=== PATIENT | female | born 1990 | race Two or more races ===

== ENCOUNTER 2023-05-15 01:55 | Observation (INO) | payer MEDICAID, OTHER ==
[~2023-05-15] VITALS: Ht 172.7 cm; Wt 90.0 kg
[2023-05-15 02:48] LABS: Basophils # (auto) 0 10 ^3/uL (0-0.2); Basophils % (auto) 0.3 % (0.0-2.0); Eosinophils # (auto) 0 10 ^3/uL (0-0.8); Eosinophils % (auto) 0.2 % (0.0-7.0); Hematocrit 37.5 % (36.0-46.0); Hemoglobin 12.2 g/dL (12.2-16.2); Lymphocytes # (auto) 0.6 10 ^3/uL (0.4-5.4); Lymphocytes % (auto) 4.3 % (10.0-50.0); Mean Corpuscular Hemoglobin 28.7 pg (28.0-32.0); Mean Corpuscular Hgb Conc. 32.6 g/dL (32.0-36.0); Monocytes # (auto) 0.8 10 ^3/uL (0-1.3); Monocytes % (auto) 5.7 % (0.0-12.0); Neutrophils # (auto) 13.3 10 ^3/uL (1.6-8.6); Neutrophils % (auto) 89.5 % (37.0-80.0); Red Blood Cells 4.26 10^6/uL (4.0-5.20); Red Cell Distribution Width 13.7 % (11.8-14.3); White Blood Cell 14.9 10^3/uL (4.4-10.8)
[2023-05-15 03:00] LABS: Lipase 38 U/L (12-53)
[2023-05-15 03:01] LABS: INR 1.03 (0.9-1.15); Prothrombin Time 10.8 sec (9.3-11.8)
[2023-05-15 05:08] LABS: Blood Alcohol < 3.0 mg/dL (<10)
[2023-05-15 05:35] LABS: Alanine Aminotransferase 17 U/L (7-40); Albumin 4.4 g/dL (3.2-4.8); Alkaline Phosphatase 85 U/L (46-116); Anion Gap 7 (5-15); Aspartate Aminotransferase 14 U/L (13-40); BUN/Creatinine Ratio 15.2 (10.0-20.0); Bilirubin, Total 0.6 mg/dL (0.2-1.0); Blood Urea Nitrogen 10 mg/dL (9-23); Calcium 9.1 mg/dL (8.7-10.4); Carbon Dioxide 25 mmol/L (20-30); Chloride 107 mmol/L (98-107); Glucose 125 mg/dL (74-106); Potassium 4.3 mmol/L (3.5-5.1); Sodium 139 mmol/L (136-145); Total Protein 6.8 g/dL (5.7-8.2)
[2023-05-15] MEDS ORDERED: ONDANSETRON HCL 4 MG/2 ML VIAL IV PRN (06:00)
[2023-05-15] MEDS ORDERED: MORPHINE SULFATE INJ 2 MG/ml SYRG IV PRN (06:00)
[2023-05-15] MEDS ORDERED: NITROGLYCERIN 0.4 MG SL TAB SL PRN (06:00)
[2023-05-15] MEDS: cefTRIAXone 1GM/50ML D5W 50 ML IV ONE (07:48)
[2023-05-15 09:40] VITALS: PULSE 84; RESP 16; O2SAT 96
[2023-05-15 10:04] LABS: Urine Bacteria FEW /hpf (None Seen); Urine Blood TRACE /uL (Negative); Urine Clarity Clear (Clear); Urine Color Yellow (Yellow); Urine Mucus FEW (None Seen); Urine Protein, UAD TRACE (Negative); Urine Urobilinogen Normal (Negative); Urine WBC 1 /hpf (0 - 5)
[2023-05-15 10:14] LABS: Amphetamine Screen, Urine Neg (NEGATIVE)
[2023-05-15 10:15] LABS: Barbiturate Scree,Urine Neg (NEGATIVE); Benzodiazephine Screen, Urine Neg (NEGATIVE); Cannabinoid Screen, Urine Neg (NEGATIVE); Cocaine Screen, Urine Neg (NEGATIVE); Opiate Scree,Urine Neg (NEGATIVE); Phencyclidine Screen, Urine Neg (NEGATIVE)
[2023-05-15] MEDS: ACETAMINOPHEN 325 MG TAB PO PRN (10:19)
[2023-05-15] MEDS: ENOXAPARIN SOD 40 MG/0.4 ML SYRINGE SC SCH (10:19)
[2023-05-15 18:22] VITALS: BP 113/63; PULSE 92; RESP 20; TEMP 99.3; O2SAT 99
[2023-05-15 20:00] VITALS: PULSE 74; PULSE 97; RESP 18; O2SAT 97
[2023-05-16 05:00] VITALS: BP 106/59; PULSE 91; RESP 20; TEMP 98.8; O2SAT 97
[2023-05-16 06:39] LABS: Basophils # (auto) 0 10 ^3/uL (0-0.2); Basophils % (auto) 0.3 % (0.0-2.0); Eosinophils # (auto) 0 10 ^3/uL (0-0.8); Eosinophils % (auto) 0.2 % (0.0-7.0); Hematocrit 37.5 % (36.0-46.0); Hemoglobin 12.2 g/dL (12.2-16.2); Lymphocytes # (auto) 1.3 10 ^3/uL (0.4-5.4); Lymphocytes % (auto) 9.4 % (10.0-50.0); Mean Corpuscular Hemoglobin 29.1 pg (28.0-32.0); Mean Corpuscular Hgb Conc. 32.4 g/dL (32.0-36.0); Mean Corpuscular Volume 89.6 fL (80.0-100.0); Monocytes # (auto) 1.5 10 ^3/uL (0-1.3); Monocytes % (auto) 10.3 % (0.0-12.0); Neutrophils # (auto) 11.3 10 ^3/uL (1.6-8.6); Neutrophils % (auto) 79.8 % (37.0-80.0); Nucleated Red Blood Cells % 0.1 %; Red Blood Cells 4.19 10^6/uL (4.0-5.20); Red Cell Distribution Width 14.1 % (11.8-14.3); White Blood Cell 14.2 10^3/uL (4.4-10.8)
[2023-05-16 06:43] LABS: Anion Gap 9 (5-15); Carbon Dioxide 22 mmol/L (20-30); Chloride 108 mmol/L (98-107); Potassium 3.5 mmol/L (3.5-5.1); Sodium 139 mmol/L (136-145)
[2023-05-16 06:44] LABS: Calcium 9.3 mg/dL (8.5-10.1)
[2023-05-16 06:49] LABS: Glucose 93 mg/dL (74-106)
[2023-05-16 06:50] LABS: BUN/Creatinine Ratio 8.9 (10.0-20.0); Blood Urea Nitrogen < 5 mg/dL (9-23)
[2023-05-16 08:00] VITALS: PULSE 77; PULSE 96
[2023-05-16] MEDS: cefTRIAXone 1GM/50ML D5W 50 ML IV SCH (10:00)
[2023-05-16] MEDS ORDERED: VENL225T10 PO (10:04)
[2023-05-16 10:53] VITALS: BP 102/68; PULSE 91; RESP 19; TEMP 98.8; O2SAT 98
[2023-05-16 12:46] VITALS: BP 116/60; PULSE 80; RESP 19; TEMP 98.5; O2SAT 99
[2023-05-16 17:58] VITALS: BP 107/56; PULSE 73; RESP 19; TEMP 98.2; O2SAT 100
== END 2023-05-16 18:13 | disposition home or self-care (01) ==
LOC: ER 01:55 → TELE 05:54 → TELE-CENTR 06:06
PROVIDERS: ADMIT Nurse Practitioner Family; ATTEND Internal Medicine
DX: D72.829 Elevated white blood cell count, unspecified (principal); R82.71 Bacteriuria; J45.909 Unspecified asthma, uncomplicated; E11.9 Type 2 diabetes mellitus without complications; I10 Essential (primary) hypertension; F20.9 Schizophrenia, unspecified; R56.9 Unspecified convulsions; F32.A Depression, unspecified; I20.0 Unstable angina; Z79.899 Other long term (current) drug therapy
CPT/HCPCS: 36415; 70450; 71045; 80048; 80053; 80307; 80320; 81001; 83605; 83690; 84484; 85025; 85379; 85610; 85730; 87040; 93005; 93306; 96365; 96366; 96372; 97110; 97116; 97163; 99285; G0378; J0696; J1650